=== PATIENT | male | born 1950 | race Caucasian/White ===

== ENCOUNTER 2017-02-23 09:09 | Outpatient (CLI) | payer OTHER ==
[2017-02-23 09:52] LABS: CALCIUM 8.9 mg/dL (8.4-11.0); CHLORIDE 106 mmol/L (98-107); CREATININE 1.03 mg/dL (0.55-1.30); GLUCOSE 109 mg/dL (70-99); SODIUM SERUM 143 mmol/L (136-145); UREA NITROGEN, BLOOD 23 mg/dL (8-21)
[2017-02-23 09:54] LABS: ANION GAP < 3 (5-15); BASOPHILS % (AUTO) 0.9 % (0.0-2.0); EOSINOPHILS # (AUTO) 0.2 K/uL (0.0-0.4); EOSINOPHILS % (AUTO) 4.6 % (0.0-4.0); GFR AFRICAN AMERICAN 92 mL/min (>90); HEMATOCRIT 46.5 % (36-54); HEMOGLOBIN 14.9 g/dL (14.0-18.0); INR 1.1 (0.80-1.20); LYMPHOCYTES # (AUTO) 1.3 K/uL (1.0-5.5); LYMPHOCYTES % (AUTO) 25.9 % (20.5-51.5); MEAN CORPUSCULAR HEMOGLOBIN 32 pg (27-31); MEAN CORPUSCULAR HGB CONC 32 % (32-36); MEAN CORPUSCULAR VOLUME 98 fL (79.0-98.0); MONOCYTES # (AUTO) 0.7 K/uL (0.0-1.0); MONOCYTES % (AUTO) 13.4 % (1.7-9.3); NEUTROPHILS % (AUTO) 55.2 % (40.0-70.0); PLATELET COUNT (AUTO) 126 K/uL (130-430); PROTHROMBIN TIME 11.7 SECS (9.5-12.5); RED BLOOD CELL COUNT(AUTO) 4.73 MIL/uL (4.2-6.2); RED CELL DISTRIBUTION WIDTH 14.4 % (9.0-15.0); WHITE BLOOD COUNT (AUTO) 5.2 K/uL (4.8-10.8)
== END 2017-02-23 20:26 | disposition home or self-care (01) ==
LOC: SRD 09:09
PROVIDERS: ATTEND Surgery Vascular Surgery
DX: Z01.811 Encounter for preprocedural respiratory examination (principal); I51.7 Cardiomegaly; I48.91 Unspecified atrial fibrillation
CPT/HCPCS: 36415; 71020-TC; 80048; 85025; 85610-TC; 85730-TC

== ENCOUNTER 2021-03-24 16:11 | Emergency (ER) | payer OTHER ==
[~2021-03-24] VITALS: Ht 185.4 cm; Wt 123.4 kg
[2021-03-24 16:15] VITALS: BP_SYST 124
[2021-03-24 19:00] VITALS: BP_SYST 121
== END 2021-03-24 19:00 | disposition home or self-care (01) ==
LOC: SED 16:11
DX: M79.651 Pain in right thigh (principal); I48.91 Unspecified atrial fibrillation; J44.9 Chronic obstructive pulmonary disease, unspecified; Z88.8 Allergy status to other drugs, medicaments and biological substances; Z79.01 Long term (current) use of anticoagulants
CPT/HCPCS: 93971; 99284

== ENCOUNTER 2023-08-10 10:10 | Emergency (ER) | payer OTHER ==
[~2023-08-10] VITALS: Ht 185.4 cm; Wt 117.9 kg
[2023-08-10 10:10] VITALS: BP_SYST 94; PULSE 67; RESP 19; TEMP 98.4; O2SAT 92
[2023-08-10 11:51] LABS: EOSINOPHILS # (AUTO) 0.2 K/uL (0.0-0.4); EOSINOPHILS % (AUTO) 5.2 % (0.0-4.0); HEMATOCRIT 39.6 % (36-54); HEMOGLOBIN 12.9 g/dL (14.0-18.0); LYMPHOCYTES # (AUTO) 1.4 K/uL (1.0-5.5); LYMPHOCYTES % (AUTO) 30.3 % (20.5-51.5); MEAN CORPUSCULAR HEMOGLOBIN 32 pg (27-31); MEAN CORPUSCULAR HGB CONC 33 % (32-36); MEAN CORPUSCULAR VOLUME 99 fL (79.0-98.0); MONOCYTES # (AUTO) 0.5 K/uL (0.0-1.0); MONOCYTES % (AUTO) 12.3 % (1.7-9.3); NEUTROPHILS # (AUTO) 2.3 K/uL (1.8-7.7); NEUTROPHILS % (AUTO) 51.2 % (40.0-70.0); PLATELET COUNT (AUTO) 196 K/uL (130-430); RED BLOOD CELL COUNT(AUTO) 3.99 MIL/uL (4.2-6.2); RED CELL DISTRIBUTION WIDTH 14.8 % (9.0-15.0); WHITE BLOOD COUNT (AUTO) 4.5 K/uL (4.8-10.8)
[2023-08-10 12:05] LABS: INR 1.3 (0.80-1.20); PROTHROMBIN TIME 13.6 SECS (9.5-12.5)
[2023-08-10 12:09] LABS: ANION GAP 4 (5-15); CALCIUM 8.9 mg/dL (8.4-11.0); CARBON DIOXIDE 38 mmol/L (23-29); CHLORIDE 104 mmol/L (98-107); CREATININE 0.85 mg/dL (0.55-1.30); GLUCOSE 116 mg/dL (74-106); POTASSIUM 3.4 mmol/L (3.5-5.1); SODIUM SERUM 146 mmol/L (136-145); UREA NITROGEN, BLOOD 21 mg/dL (8-21)
== END 2023-08-10 13:15 | disposition home or self-care (01) ==
LOC: SED 10:10
DX: R60.0 Localized edema (principal); R06.00 Dyspnea, unspecified; R10.84 Generalized abdominal pain; R06.02 Shortness of breath; I11.0 Hypertensive heart disease with heart failure; I50.9 Heart failure, unspecified; E78.5 Hyperlipidemia, unspecified; Z91.041 Radiographic dye allergy status; Z85.828 Personal history of other malignant neoplasm of skin; Z79.899 Other long term (current) drug therapy
CPT/HCPCS: 36415; 71045; 80048; 83880; 84484; 85025; 85610; 85730; 99284